=== PATIENT | male | born 1935 | race Caucasian/White ===

== ENCOUNTER 2019-04-18 13:44 | Inpatient (IN) | payer OTHER ==
[~2019-04-18] VITALS: Ht 162.6 cm; Wt 68.0 kg
[2019-04-18 13:57] VITALS: Ht 162.6 cm; Wt 68.0 kg
--- NOTE | 2019-04-18 14:07 | NUR ---
PT BROUGHT IN BY [facility] DUE TO DTR CALLING STATING HE HAS LEFT TESTICLE SWELLING AND 10/10 PAIN. SHE REPORTS HE FELL LAST NIGHT AND USES A WALKER AND THEIR TRAILER IS VERY SMALL SO IT IS EASY TO TRIP AND FALL. 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 PT DOES HAVE 2 FENTANYL PATCHES ON LEFT SIDE OF CHEST C NO DATE AND DOSE UNKNOWN AT THIS TIME. RN WILL F/U WITH DTR TO FIND OUT WE[facility] HX PT SAS HE CAN NOT RECALL MEDS- ONLY OXYCODONE. PT IS A/0 X4, RESP EVEN/UNLABORED. PT HAS SOME INCONTINENCE OF URINE IN SCANT AMOUNTS. WAITING FOR MSE TO BE DONE
--- NOTE | 2019-04-18 14:32 | NUR ---
DR. MAJOR AT BEDSIDE WITH RN. PT O2 SAT AT 80%, RN PLACED 4LPM VIA N/C. O2 SAT RISING TO 92%. PER DR. MAJOR KEEP O2 AT 4LPM HE SUSPECTS PT HAS COPD. PT REPORTS BEING A SMOKER FOR 75 YEARS.
--- NOTE | 2019-04-18 14:34 | NUR ---
PT'S DTR AT [facility]. SHE STATES HE IS NOT ALLERGIC TO OXYCODONE AND THAT HE TAKES OXCYCODE. HE IS ALLERGIC TO PCN AND SULFA. ALLERGIES UPDATED.
[2019-04-18 14:46] LABS: BASOPHIL % 0.1 % (0-2); PLATELET COUNT 258 x10^3mcL (130-400)
[2019-04-18 14:49] LABS: RED CELL DISTRIBUTION WIDTH 16.7 % (11.5-14.5)
--- NOTE | 2019-04-18 14:55 | NUR ---
PT MEDICATED C TYLENOL 1GM PER MEDICATION PROTOCOL FOR TEMP OF 102.8. WILL MONITOR
[2019-04-18 15:12] LABS: UA SPECIFIC GRAVITY >=1.030 (1.005-1.035); microscopic required? YES; urine erythrocyte 2+ (NEGATIVE)
[2019-04-18 15:22] LABS: CALCIUM 8.6 mg/dL (8.5-10.1); CARBON DIOXIDE 28.8 mmol/L (21-32); CHLORIDE SERUM 99 mmol/L (98-107); CREATININE SERUM 0.9 mg/dL (0.7-1.3); GLUCOSE SERUM 126 mg/dL (74-106); SODIUM SERUM 133 mmol/L (136-145)
[2019-04-18 15:27] LABS: ALKALINE PHOSPHATASE 131 U/L (46-116); ALT/SGPT 35 U/L (16-63); AST/SGOT 26 U/L (15-37); BILIRUBIN TOTAL 0.9 mg/dL (0.20-1.00); CHOLESTEROL 136 mg/dL (<200); HDL CHOLESTEROL 38 mg/dL (40-60); TOTAL PROTEIN, SERUM 7.3 g/dL (6.4-8.2)
[2019-04-18 15:32] LABS: ALBUMIN 3.3 g/dL (3.4-5.0)
--- NOTE | 2019-04-18 16:00 | NUR ---
PT IN BED TALKING C 2 DAUGHTERS. PT IS A/O X 4.
[2019-04-18] MEDS ORDERED: MORPHINE SULFAT30 M6 PO (17:15)
[2019-04-18] MEDS ORDERED: DURAGESIC100 MCG/HR TD (17:16)
[2019-04-18] MEDS ORDERED: NEURONTIN600 MG PO (17:17)
[2019-04-18] MEDS ORDERED: ZOF4 PO (17:18)
[2019-04-18] MEDS ORDERED: AMBIEN5 MG PO (17:19)
[2019-04-18] MEDS ORDERED: METHOTREXATE2.5 M2 PO (17:19)
[2019-04-18] MEDS ORDERED: APAP/OXYCODONE1 TA4 PO (18:08)
--- NOTE | 2019-04-18 18:09 | NUR ---
PT RESTING IN BED WITH COOLING MEASURES. TEMP 100.2. PT IS A/O X4. C/O PAIN 07/22 TORADOL IVP GIVEN. PT HAS O2 4LPM NC WITH O2 SAT RANGING FROM 89-99. DR. MAJOR AWARE AND WANTS TO KEEP AT 4LPM DUE TO SUSUPECTED COPD. DTR AT BEDSIDE. ALL NEEDS MET AT THIS TIME.
--- NOTE | 2019-04-18 19:56 | NUR ---
REPORT GIVEN TO PRASANTH AT [phone]
--- NOTE | 2019-04-18 20:30 | NUR ---
RECEIVED PT VIA GURNEY FROM E/D, ACCOMPANIED BY RN, TRANSPORTER, AND PT'S DAUGHTER, SHAI BARRIOS. PT A/A/O X 3 (PERSON, PLACE, TIME), DOES NOT KNOW WHY HE IS HERE. ON TELE # 10, SB + ELEVATED T-WAVES + 1ST DEGREE AVB, HR 66, DENIES CHEST PAIN OR DISCOMFORT AT THIS TIME. SCD BY BEDSIDE. LUNGS CTAB, CHEST RISING EVENLY, 3LNC, 98%, NO ACUTE RESPIRATORY DISTRESS NOTED. ABD SOFT, ROUND, NON-TENDER, NORMOACTIVE BOWEL SOUNDS X 4 QUADS, LAST BM 04/15/19, FORMED. C/O DARK BROWN URINE, HAS L SCROTAL EDEMA/ERYTHEMA, C/O CONSTANT L TESTICULAR ACHING 2/10 EXACERBATED BY MOVEMENT AND RELIEVED BY REST AND PAIN MEDICATION. 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 NOTED L DORSAL HAND SCAB + ERYTHEMA AND R DORSAL HAND ECCHYMOSIS, BOTH CURT. IV SITE LAC 20G, CDI. ORIENTED PT AND DAUGHTER TO ROOM, BED CONTROLS, CALL LIGHT SYSTEM. SIDE RAILS UP X 2, BED IN LOW POSITION. WILL ENDORSE TO LIZBETH RADER.
[2019-04-18 21:24] VITALS: BP 114/52
[2019-04-19 05:04] VITALS: BP 121/58
--- NOTE | 2019-04-19 06:32 | NUR ---
PT RESTED IN LONG INTERVALS THROUGHOUT SHIFT. NO SOB ON O2 3L VIA NC. BREATHING EVEN AND UNLABORED. NO C/O PAIN. NO DISTRESS NOTED. IV TO LAC, NS INFUSING. SAFETY MEASURES MAINTAINED. ALL NEEDS ATTENDED TO. BED IN LOWEST POSITION. SIDE RAILS UP X2. CALL LIGHT WITHIN REACH. WILL ENDORSE CONTINUITY OF CARE TO ONCOMING RN.
[2019-04-19 06:46] LABS: PLATELET COUNT 265 x10^3mcL (130-400)
[2019-04-19 07:00] LABS: BASOPHIL % 0 % (0-2); RED CELL DISTRIBUTION WIDTH 17.5 % (11.5-14.5)
[2019-04-19 07:23] LABS: ALKALINE PHOSPHATASE 103 U/L (46-116); ALT/SGPT 27 U/L (16-63); AST/SGOT 21 U/L (15-37); BILIRUBIN TOTAL 0.8 mg/dL (0.20-1.00); CALCIUM 8.1 mg/dL (8.5-10.1); CARBON DIOXIDE 25.7 mmol/L (21-32); CHLORIDE SERUM 102 mmol/L (98-107); CREATININE SERUM 0.7 mg/dL (0.7-1.3); GLUCOSE SERUM 129 mg/dL (74-106); POTASSIUM SERUM 4.2 mmol/L (3.5-5.1); SODIUM SERUM 134 mmol/L (136-145); TOTAL PROTEIN, SERUM 6.4 g/dL (6.4-8.2)
--- NOTE | 2019-04-19 07:30 | NUR ---
PT IS AAOX4. RESP EVEN WITH SOB. LUNG SOUNDS DIMINISHED BILATERALLY. ON N/C AT 3 LPM. NO COUGH NOTED AT THIS TIME. TELE [address] READING NSR WITH FIRST DEGREE AB BLOCK AND INTERMITTENT PACS. PT DENIES C/P AND PRESSURE. SKIN WARM, CAP REFILL < 3 SECS. PT NOTED WITH SCROTAL EDEMA. PT HAS L DORSAL HOUD SCAB WITH ERYTHEMA, CURT. NO S/S OF INFECTION NOTED. PT HAS R DORSAL HAND ECCYMOSIS. IV CATH TO LAC WITH FLUIDS RUNNING, SITE WNL. NO S/S OF INFECTION OR INFILTRATION. PT DENIES PAIN AT THIS TIME. CALL LIGHT WITHIN REACH. BED IN LOWEST POSITION. BED ALARM ON. BED SIDE COMMODE PLACE IN PT'S ROOM. WILL CONTINUE TO MONITOR.
[2019-04-19 07:34] LABS: ALBUMIN 2.7 g/dL (3.4-5.0)
[2019-04-19 09:43] VITALS: BP 114/55
--- NOTE | 2019-04-19 09:45 | NUR ---
SCHEDULED MEDS GIVEN AND TOLERATED WELL. DR. GARCIA MET WITH PT AND DISCUSSED POC. PT IS TO HAVE BED REST, WAITING FOR URINE CX. PT HOME FENTANYL PATCH WILL BE RECONCILED AND LABS WILL FOLLOWED UP TOMORROW. PT IS TO REMAIN ON N/C DUE TO DESATURATION TO 90% ON R/A WHEN N/C IS TAKEN OFF. PT AGREED WITH POC. CALL LIGHT WITHIN REACH. PT DENIES PAIN AT THIS TIME. NO DISTRESS NOTED.
--- NOTE | 2019-04-19 11:17 | NUR ---
LEVAQUIN IVPB STARTED. RESP EVEN AND UNLABORED. PT DENIES PAIN AT THIS TIME. CALL LIGHT WITHIN REACH. BED IN LOWEST POSITION. BED ALARM ON.
--- NOTE | 2019-04-19 11:17 | NUR ---
LEVAQUIN IVPB STARTED. RESP EVEN AND UNLABORE. PT DENIES PAIN AT THIS TIME.
[2019-04-19 12:37] VITALS: BP 126/54
--- NOTE | 2019-04-19 15:19 | NUR ---
PT ASSISTED WITH GOWN CHANGE AND BEDDING CHANGE. PT SOB DURING ACTIVITY. PT BACK IN BED. RESP EVEN AND UNLABORED. NO DISTRESS NOTED. DENIES PAIN AT THIS TIME. N/C AT [address] CALL LIGHT WITHIN REACH.
--- NOTE | 2019-04-19 15:50 | NUR ---
PT IS SLEEPING BUT EASILY AROUSABLE TO VERBAL STIMULI. RESP EVEN AND UNLABORED. NO DISTRESS NOTED. CALL LIGHT WITHIN REACH.
[2019-04-19 16:31] VITALS: BP 123/60
--- NOTE | 2019-04-19 18:35 | NUR ---
PT IS AAOX4. RESP EVEN AND UNLABORED. NO DISTRESS NOTED. TELE [address] READING NSR WITH FIRST DEGREE AV BLOCK. PT DENIES C/P, PRESSSURE. IV CATH TO LAC PATENT. SITE WNL. PT DENIES PAIN. O2 N/C AT [address] RESP EVEN AND UNLABORED. NO COUGH OR SOB NOTED. CALL LIGHT WITHIN REACH.
--- NOTE | 2019-04-19 19:45 | NUR ---
RECEIVED PT IN BED AWAKE, ALERT, ORIENTED X4. SPEECH CLEAR, ABLE TO MAKE NEEDS KNOWN. TELE 10 SHOWS NSR WITH FIRSDT DEGREE BLOCK AND OCCASSIONAL PAC'S. NO CHEST PAIN NOTED. PT GETS SOB UPON EXERTION. BS ACTIVE IN ALL FOUR QUADS. NO ABD PAIN NOTED. ABD IS OBESE. VOIDING FREELY, WITH URINAL AT BEDSIDE. LEFT SCROTAL AREA SWELLING WITH ECCHYMOSIS. NS AT 80ML/HR TO LAC. SHIFT ASSESSMENT COMPLETED. CALL LIGHT WITHIN REACH. BED IS IN LOWEST POSITION. FALL PRECAUTIONS ENFORCED. SIDDHARTHA CONTINUE TO MONITOR CLOSELY.
--- NOTE | 2019-04-19 20:30 | NUR ---
ALL DUE MEDS GIVEN ORDERED. PT REQUESTING SLEEPING PILL, NOTIFIED DR. MORRELL; NEW ORDERS RECEIVED. ALL NEEDS TENDED TO. WILL CONTINUE TO MONITOR CLOSELY.
[2019-04-19 20:36] VITALS: BP 110/49
--- NOTE | 2019-04-20 00:55 | NUR ---
PT APPEARS TO BE SLEEPING IN NO DISTRESS. IVF ONGOING. CALL LIGHT WITHIN REACH. WILL CONTINUE TO MONITOR CLOSELY.
[2019-04-20 05:37] VITALS: BP 125/49
[2019-04-20 06:21] LABS: PLATELET COUNT 269 x10^3mcL (130-400)
[2019-04-20 06:39] LABS: ALKALINE PHOSPHATASE 99 U/L (46-116); ALT/SGPT 33 U/L (16-63); AST/SGOT 30 U/L (15-37); BILIRUBIN TOTAL 0.34 mg/dL (0.20-1.00); CALCIUM 8.4 mg/dL (8.5-10.1); CARBON DIOXIDE 26.9 mmol/L (21-32); CHLORIDE SERUM 108 mmol/L (98-107); CREATININE SERUM 0.6 mg/dL (0.7-1.3); GLUCOSE SERUM 131 mg/dL (74-106); POTASSIUM SERUM 4.5 mmol/L (3.5-5.1); SODIUM SERUM 141 mmol/L (136-145)
--- NOTE | 2019-04-20 06:40 | NUR ---
PT RESTING IN BED. NEW IV HUNG AT THIS TIME. ALL NEEDS TENDED TO. WILL ENDORSE TO INCOMING SHIFT.
[2019-04-20 06:53] LABS: BASOPHIL % 0 % (0-2)
[2019-04-20 07:03] LABS: ALBUMIN 2.5 g/dL (3.4-5.0)
--- NOTE | 2019-04-20 07:58 | NUR ---
RECEIVED PATIENT FROM LIZBETH ALFARO. PATIENT SEATED UP TO BEDSIDE EATING BREAKFAST TRAY. 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 INFORMED PATIENT THAT WE WILL HAVE TO WAIT FOR [facility] TO COME IN AND SPEAK TO HIM TODAY. PATIENT AGREES, CALL LIGHT IN REACH.
[2019-04-20 08:20] VITALS: BP 107/56
--- NOTE | 2019-04-20 09:34 | NUR ---
DR RUEDA IN TO SPEAK WITH PATIENT. DR RUEDA STATES PATIENT LIKELY TO GO HOME TOMORROW AND TO CONTINUE IV ANTIBIOTICS. MEDICATIONS ADJUSTED. PATIENT AGREES, NO FURTHER QUESTIONS AT THIS TIME.
[2019-04-20 13:16] VITALS: BP 128/53
--- NOTE | 2019-04-20 14:51 | NUR ---
[employer] ARCHITECT [employer] CALLED AND STATED THAT PATIENT IS REFUSING TRANSFER TO SNF FOR REHAB AND WOULD LIKE TO GO HOME INSTEAD. FAMILY AWARE WELL. [employer] ARCHITECT RECOMMENDED [facility] HOME HEALTH AND PT EVAL. PAGED DR RUEDA AND MADE AWARE, DR RUEDA AGREES. ORDER FOR HOME HEALTH AND PT EVAL TO BE PLACED AT THIS TIME.
[2019-04-20 16:54] VITALS: BP 123/64
--- NOTE | 2019-04-20 17:10 | NUR ---
PATIENT SEATED IN BED, DAUGHTER AT BEDSIDE. PATIENT STATES HIS BREATHING HAS IMPROVED. WILL CONTINUE TO MONITOR AND WILL ENDORSE TO ONCOMING NURSE.
--- NOTE | 2019-04-20 19:15 | NUR ---
PT RECEIVED A/O X4, ABLE TO MAKE NEEDS KNOWN. TELE #10, DENIES ANY CP/PRESSURE. PULSES PALPABLE, LEFT TESTICULAR SWELLING NOTED. BREATHING IS EVEN AND UNLABORED ON RA, PT REPORTS SOB UPON EXERTION, NO RESP DISTRES NOTED. ABD SOFT AND ROUND, DENIES N/V. VOIDS FREELY, URINAL AT BEDSIDE. GENERALIZED WEAKNESS, AMBULATORY WITH ASSIST. WALKER AT BESIDE. [place] HAND CONTRACTURES NOTED. PT DENIES HAVING ANY PAIN AT THIS TIME. SL TO LAC, PATENT AND INTACT. NO ACUTE DISTRESS NOTED. BED IN LOWEST SETTING, SIDE RAILS UP X2, CALL LIGHT WITHIN REACH. WILL CONT TO MONITOR.
--- NOTE | 2019-04-20 20:45 | NUR ---
SCHEDULED MEDS GIVEN ORDERED. PT C/O INSOMNIA, PRN AMBIEN GIVEN ORDERED. NO ACUTE DISTRESS NOTED. WILL CONT TO MONITOR.
[2019-04-20 20:58] VITALS: BP 121/50
[2019-04-21 05:46] VITALS: BP 118/55
[2019-04-21 06:41] LABS: ALKALINE PHOSPHATASE 87 U/L (46-116); ALT/SGPT 60 U/L (16-63); AST/SGOT 53 U/L (15-37); BILIRUBIN TOTAL 0.46 mg/dL (0.20-1.00); CARBON DIOXIDE 29.4 mmol/L (21-32); CHLORIDE SERUM 108 mmol/L (98-107); CREATININE SERUM 0.5 mg/dL (0.7-1.3); GLUCOSE SERUM 81 mg/dL (74-106); POTASSIUM SERUM 3.6 mmol/L (3.5-5.1); SODIUM SERUM 142 mmol/L (136-145)
--- NOTE | 2019-04-21 06:41 | NUR ---
PT SLEPT WELL THROUGHOUT THE EVENING. BREATHING IS EVEN AND UNLABORED, NO RESP DISTRESS NOTED. PT DENIES HAVING ANY PAIN AT THIS TIME. IV PATENT AND INTACT. PT'S GOWN AND LINENS CHANGED. NO ACUTE CHANGES ENCOUNTERED DURING SHIFT. ALL NEEDS MET AND ANTICIPATED. CALL LIGHT WITHIN REACH. WILL ENDORSE CARE TO AM NURSE.
[2019-04-21 06:43] LABS: ALBUMIN 2.4 g/dL (3.4-5.0); TOTAL PROTEIN, SERUM 5.6 g/dL (6.4-8.2)
[2019-04-21 06:53] LABS: BASOPHIL % 0.1 % (0-2); PLATELET COUNT 276 x10^3mcL (130-400)
[2019-04-21 06:58] LABS: RED CELL DISTRIBUTION WIDTH 17.6 % (11.5-14.5)
--- NOTE | 2019-04-21 07:15 | NUR ---
RECIEVED PT RESTING IN BED WITH NO C/O PAIN OR DISTRESS. A/O X4 WITH NO GALLEGOS OR DIZZINESS. TELE#10 CONNECTED TO PT, DENIES CP OR PRESSURE. PT FOUND ON RA AND SATURATION IS AT 95%. IV TO LAC CDI/PATENT. SAFETY PRECAUTIONS IN PLACE, CALL LIGHT WITHN REACH, WILL MONITOR.
[2019-04-21] MEDS ORDERED: LEVOFLOXACIN500 M1 PO (08:42)
[2019-04-21] MEDS ORDERED: PREDNISONE IN5 MG/ML PO (08:42)
[2019-04-21] MEDS ORDERED: COMINH INH (08:43)
[2019-04-21 09:38] VITALS: BP 104/45
[2019-04-21 10:55] VITALS: BP 104/45
--- NOTE | 2019-04-21 12:59 | NUR ---
PT STABLE TO DISCHARGE PER MD ORDER. NO PAIN OR DISTRESS NOTED. ALL DISCHARGE INSTRUCTIONS, EDUCATION, AND PRESCRIPTIONS IGIVEN TO PT AND FAMILY. BOTH VERBALIZE UNDERSTANDING. IV REMOVED WITH CATHETER INTACT, NO REDNESS OR INFLAMMATION NOTED TO SITE. ID BANDS REMOVED FROM PT ARM. PICTURES TAKEN OF WOUNDS AND PUT IN CHART. PT ESCORTED DOWN TO LOBBY VIA WC BY FARA, ALL PERSONAL BELONGINGS IN HAND.
== END 2019-04-21 13:00 | disposition home health service (06) | DRG 190 ==
LOC: ED 13:44 → EDBD 13:44 → DU 18:49
PROVIDERS: Emergency Medicine; Internal Medicine Pulmonary Disease; ADMIT Internal Medicine
DX: J44.1 Chronic obstructive pulmonary disease with (acute) exacerbation (principal); J96.00 Acute respiratory failure, unspecified whether with hypoxia or hypercapnia; N39.0 Urinary tract infection, site not specified; J20.9 Acute bronchitis, unspecified; J44.0 Chronic obstructive pulmonary disease with (acute) lower respiratory infection; N43.3 Hydrocele, unspecified; L40.9 Psoriasis, unspecified; N50.3 Cyst of epididymis; M16.10 Unilateral primary osteoarthritis, unspecified hip; M19.012 Primary osteoarthritis, left shoulder; M19.011 Primary osteoarthritis, right shoulder; G89.29 Other chronic pain; F17.210 Nicotine dependence, cigarettes, uncomplicated; Z79.891 Long term (current) use of opiate analgesic; Z98.1 Arthrodesis status
CPT/HCPCS: 36600; 87804; 97110-GP; 97116-GP; 97530-GP; 99406; G0378; J0456; J1644; J1885; J1956; J2920; J2930; J7030; Q0092